=== PATIENT | female | born 1935 | race Caucasian/White ===

== ENCOUNTER → 2018-07-13 | Outpatient (REF) | payer MEDICARE, OTHER | LOC: M LAB REF 16:22 | DX: N39.41 Urge incontinence (principal); R35.0 Frequency of micturition | CPT/HCPCS: 87186 ==

== ENCOUNTER → 2018-08-11 | Outpatient (CLI) | payer MEDICARE, BC, OTHER | LOC: M RAD 14:20 | DX: Z12.31 Encounter for screening mammogram for malignant neoplasm of breast (principal); Z80.0 Family history of malignant neoplasm of digestive organs | CPT/HCPCS: 77067 ==

== ENCOUNTER → 2018-10-04 | Outpatient (REF) | payer MEDICARE, OTHER ==
[~2018-10-04] MED LIST: CALC1CAP31 PO; MULTCAP PO
[2018-10-04 19:11] LABS: APPEARANCE, URINE CLEAR (CLEAR); BACTERIA, URINE AUTO 2+ (NEGATIVE); BILIRUBIN, URINE AUTO NEGATIVE (NEGATIVE); BLOOD, URINE BLOOD NEGATIVE (NEGATIVE); COLOR, URINE YELLOW (YELLOW); GLUCOSE, URINE (UA) AUTO NEGATIVE (NEGATIVE); KETONE, URINE AUTO NEGATIVE (NEGATIVE); LEUKOCYTE ESTERASE, URINE AUTO NEGATIVE (NEGATIVE); MUCUS, URINE SMALL (NEGATIVE); NITRITE, URINE AUTO NEGATIVE (NEGATIVE); PROTEIN, URINE AUTO NEGATIVE (NEGATIVE); RBC, URINE AUTO 1 /HPF (0-3); SQUAMOUS EPITHELIAL CELL UR AU 5 /HPF (0-6); UROBILINOGEN, URINE AUTO 0.2 mg/dL (0.0-2.0); WBC, URINE AUTO 0 /HPF (0-3)
== END ==
LOC: M LAB REF 16:41
PROVIDERS: ATTEND Obstetrics & Gynecology
DX: N39.46 Mixed incontinence (principal); R35.1 Nocturia; N32.81 Overactive bladder

== ENCOUNTER 2018-10-18 09:11 | Day surgery (SDC) | payer MEDICARE, BC, OTHER ==
[~2018-10-18] VITALS: Ht 160 cm; Wt 78.0 kg
[~2018-10-18 09:11] MED LIST changes: +LIDOCAINE 2% INJ 100 MG/5 ML SDV (FOR ANES.) As Ordered ONE; +PROPOFOL 200 MG/20 ML VIAL As Ordered ONE
[2018-10-18] MEDS ORDERED: PROPOFOL 200 MG/20 ML VIAL As Ordered ONE (10:01)
[2018-10-18] MEDS ORDERED: NS 1,000 ML IV SCH (10:15)
--- NOTE | 2018-10-18 11:22 | ROOR ---
Patient Name: Melida Waterman Procedure Date: 10/18/2018 10:59 AM Date of : 1935 Age: 83 Room: [facility] Gender: Female Note Status: Finalized Procedure: Total Colonoscopy to Cecum Indications: Heme positive stool Providers: Valerio Hannon MD Referring MD: Krista Rosas NP Requesting Provider: Medicines: Monitored Anesthesia Care Complications: No immediate complications. Procedure: Pre-Anesthesia Assessment: - The heart rate, respiratory rate, oxygen saturations, blood pressure, adequacy of pulmonary ventilation, and response to care were monitored throughout the procedure. The Colonoscope was introduced through the anus and advanced to the cecum, identified by appendiceal orifice and ileocecal valve. The colonoscopy was performed without difficulty. The patient tolerated the procedure well. The quality of the bowel preparation was good. Findings: The perianal and digital rectal examinations were normal. Non-bleeding internal hemorrhoids were found during retroflexion. The hemorrhoids were small and Grade I (internal hemorrhoids that do not prolapse). Multiple small and large-mouthed diverticula were found in the recto-sigmoid colon, sigmoid colon and descending colon. The exam was otherwise without abnormality on direct and retroflexion views. Impression: - Non-bleeding internal hemorrhoids. - Diverticulosis in the recto-sigmoid colon, in the sigmoid colon and in the descending colon. - The examination was otherwise normal on direct and retroflexion views. - No specimens collected. - The exam was otherwise normal to the cecum. Recommendation: - Patient has a contact number available for emergencies. The signs and symptoms of potential delayed complications were discussed with the patient. Return to normal activities tomorrow. Written discharge instructions were provided to the patient. - High fiber diet. - Discharge patient to home. - Continue present medications. - Repeat colonoscopy for symptoms only. - Return to referring physician. - The findings and recommendations were discussed with the patient's family. Valerio Hannon MD Valerio Hannon MD 10/18/2018 11:22:11 AM This report has been signed electronically. Number of Addenda: 0 Note Initiated On: 10/18/2018 10:59 AM Estimated Blood Loss: Estimated blood loss: none.
[2018-10-18 11:40] VITALS: BP 156/73
== END 2018-10-18 11:50 | disposition home or self-care (01) ==
LOC: M OPP 09:11
PROVIDERS: ATTEND Internal Medicine Gastroenterology
DX: K64.0 First degree hemorrhoids (principal); R19.5 Other fecal abnormalities; K57.30 Diverticulosis of large intestine without perforation or abscess without bleeding; K21.9 Gastro-esophageal reflux disease without esophagitis; I10 Essential (primary) hypertension; Z88.2 Allergy status to sulfonamides; Z80.0 Family history of malignant neoplasm of digestive organs

== ENCOUNTER → 2018-10-27 | Outpatient (REF) | payer MEDICARE, BC, OTHER ==
[~2018-10-27] MED LIST changes: -LIDOCAINE 2% INJ 100 MG/5 ML SDV (FOR ANES.) As Ordered ONE; -PROPOFOL 200 MG/20 ML VIAL As Ordered ONE
[2018-10-27 12:52] LABS: PERCENT SATURATION 20.2 % (13.2-45.0)
== END ==
LOC: M LAB REF 12:02
PROVIDERS: ATTEND Nurse Practitioner Adult Health
DX: I12.9 Hypertensive chronic kidney disease with stage 1 through stage 4 chronic kidney disease, or unspecified chronic kidney disease (principal); N18.9 Chronic kidney disease, unspecified; D63.1 Anemia in chronic kidney disease

== ENCOUNTER → 2021-02-11 | Outpatient (CLI) | payer MEDICARE, BC, OTHER ==
--- NOTE | 2021-02-11 10:26 | REPMRS ---
Patient History The patient states she has not had a clinical breast exam in over a year. Family history of colorectal cancer at age 50 or over in mother. Took hormonal contraceptives for 7 years. No breast complaints today Patient signed the MRS sheet 1st covid vaccine 12/24/20-left arm-Moderna 2nd covid vaccine 01/21/21-right arm Priors on PACS Patient Identification Verified Digital Woman Screen Mammo: February 11, 2021 - Exam #: [id number] Bilateral CC and MLO view(s) were taken. Technologist: Amy Orlando, Technologist Prior study comparison: August 11, 2018, bilateral digital mammo screening bilat, performed at [facility], [place]. August 03, 2017, bilateral digital mammo screening bilat, performed at [facility], [place]. June 20, 2016, bilateral digital mammo screening bilat, performed at [facility], [place]. FINDINGS: There are scattered fibroglandular densities. The Volpara volumetric breast density category is:B. There has been no change in the appearance of the mammogram from the prior studies. There is a mild amount of scattered fibroglandular density which is fairly symmetric. There is no interval development of dominant mass, architectural distortion, or grouped microcalcification suggestive of malignancy. 3-D tomosynthesis shows no additional findings. Assessment: BI-RADS/ACR category 1 mammogram. Negative Mammogram. Recommendation Routine screening mammogram of both breasts in 1 year (for women over age 40). This patient's [facility] Lifetime Breast Cancer Risk is estimated at 0.3 %. This mammogram was interpreted with the aid of an FDA-approved computer-aided dectection system. Electronically Signed By: Reji George MD 02/11/21 [id number]
== END ==
LOC: M WHC 08:32
PROVIDERS: ATTEND Nurse Practitioner Adult Health
DX: Z12.31 Encounter for screening mammogram for malignant neoplasm of breast (principal)

== ENCOUNTER → 2021-03-20 | Outpatient (CLI) | payer MEDICARE, BC, OTHER ==
--- NOTE | 2021-03-20 13:08 | REP ---
INDICATION: LOW BACK PAIN. COMPARISON: 09/24/2005. TECHNIQUE: Five views lumbosacral spine. FINDINGS: There is no compression fracture. There is mild anterior grade 1 spondylolisthesis of L4 on L5 and L5 on S1 due to posterior facet arthropathy. Bridging osteophytes are seen the T11 through L2 levels. There is mild spurring of L3 through L5. There is mild disc space narrowing and subchondral sclerosis at L4-5 and L5-S1 disc spaces, with moderate spurring, sclerosis and narrowing at the posterior facet joints at these levels. The posterior elements are intact. There is mild curvature toward the left. IMPRESSION: No compression fracture. Degenerative changes as discussed above have progressed since the prior study. <Electronically signed by Ozzy Minaya > 03/20/21 [id number]
== END ==
LOC: M WUC 11:36
PROVIDERS: ATTEND Nurse Practitioner Adult Health
DX: M54.5 Low back pain (principal); M51.36 Other intervertebral disc degeneration, lumbar region; M25.78 Osteophyte, vertebrae; M46.06 Spinal enthesopathy, lumbar region

== ENCOUNTER 2021-12-25 21:05 | Observation (INO) | payer MEDICARE, BC, OTHER ==
[~2021-12-25] VITALS: Ht 154.9 cm; Wt 77.0 kg
[2021-12-25] MEDS ORDERED: ROSU5TAB5 (21:20)
[2021-12-25] MEDS ORDERED: XARE15TA (21:20)
[2021-12-25 22:00] VITALS: BP 174/82
[2021-12-25 22:01] LABS: BASO % 0.7 % (0.0-1.0); EOS # 0.2 10^3/uL (0.0-0.5); EOS % 3.6 % (0.0-3.0); HEMATOCRIT 40.5 % (36.0-47.0); HEMOGLOBIN 13.5 g/dl (12.0-15.5); LYMPH # 1.6 10^3/uL (1.5-5.0); LYMPH % 25.7 % (24.0-44.0); MEAN CORPUSCULAR HEMOGLOBIN 30.7 pg (27.0-33.0); MEAN CORPUSCULAR HGB CONC 33.3 g/dl (32.0-36.5); MONO # 0.7 10^3/uL (0.0-0.8); MONO % 11.6 % (2.0-8.0); NEUTROPHILS # 3.6 10^3/uL (1.5-8.5); NEUTROPHILS % 58.2 % (36.0-66.0); PLATELET COUNT, AUTOMATED 211 10^3/uL (150-450); WHITE BLOOD COUNT 6.1 10^3/uL (4.0-10.0)
[2021-12-25 22:12] LABS: INR 2.16; PROTHROMBIN TIME 24.5 SECONDS (12.7-14.5)
[2021-12-25 22:13] LABS: PARTIAL THROMBOPLASTIN TIME 51.1 SECONDS (25.9-37.0)
[2021-12-25 22:16] LABS: CK-MB VALUE MASS 1.1 NG/ML (<3.6); MB/CK RELATIVE INDEX 1.53 (< OR =4)
[2021-12-25 22:30] VITALS: BP 174/82
[2021-12-25 23:05] VITALS: BP 174/82
[2021-12-26] MEDS ORDERED: XARE15TA PO (00:18)
[2021-12-26] MEDS ORDERED: ROSU5TAB5 PO (00:18)
[2021-12-26] MEDS ORDERED: MAALOX 30 ML SUSP *UDC PO PRN (00:20)
[2021-12-26] MEDS ORDERED: HOME MED LIST COMPLETE! XX SCH (00:20)
[2021-12-26] MEDS ORDERED: ACETAMINOPHEN TAB 650MG DOSE (2X325MG) PO PRN (00:20)
[2021-12-26] MEDS ORDERED: MOM 30ML SUSPENSION UDC PO PRN (00:20)
[2021-12-26] MEDS ORDERED: PILL CUTTER 1 EACH XX PRN (00:30)
[2021-12-26 00:53] LABS: RSV AMPLIFICATION NEGATIVE (NEGATIVE)
[2021-12-26 01:30] VITALS: BP 174/82
[2021-12-26 08:09] LABS: HEMATOCRIT 36.5 % (36.0-47.0); HEMOGLOBIN 11.9 g/dl (12.0-15.5); MEAN CORPUSCULAR HEMOGLOBIN 30.1 pg (27.0-33.0); MEAN CORPUSCULAR HGB CONC 32.6 g/dl (32.0-36.5); MEAN CORPUSCULAR VOLUME 92.4 fl (80.0-96.0); PLATELET COUNT, AUTOMATED 174 10^3/uL (150-450); RED BLOOD COUNT 3.95 10^6/uL (4.00-5.40); WHITE BLOOD COUNT 5.6 10^3/uL (4.0-10.0)
[2021-12-26 08:33] LABS: HEMOGLOBIN A1c 5.9 %
[2021-12-26 08:36] LABS: CALCIUM LEVEL 9.3 MG/DL (8.8-10.2); CHOLESTEROL RISK RATIO 1.96 (<5); CREATININE FOR GFR 1.15 MG/DL (0.55-1.30); GLOMERULAR FILTRATION RATE 47.9 (>32); POTASSIUM SERUM 4.2 MEQ/L (3.5-5.1)
[2021-12-26] MEDS ORDERED: DOCUSATE SODIUM 100MG CAPSULE PO SCH (09:00)
[2021-12-26] MEDS ORDERED: METOPROLOL SUCC *XL* 12.5MG PER 1/2 TAB (TopROL *XL*) PO SCH (09:00)
[2021-12-26] MEDS ORDERED: ROSUVASTATIN 10 MG TAB (CRESTOR) PO SCH (09:00)
[2021-12-26 14:00] VITALS: BP 130/90
[2021-12-26] MEDS ORDERED: CEFD300C41 PO (16:37)
[2021-12-26 16:50] VITALS: BP 142/85
[2021-12-26] MEDS ORDERED: LASI20TA3 PO (16:53)
[2021-12-26] MEDS ORDERED: METO1TAB32 PO (16:53)
[2021-12-26] MEDS ORDERED: cefTRIAXone SOD 1 GM in D5W MINI-BAG PLUS 50 ML IV SCH ×4 (17:00)
[2021-12-26] MEDS ORDERED: RIVAROXABAN 15 MG TAB (XARELTO) PO SCH (18:00)
== END 2021-12-26 17:52 | disposition home or self-care (01) ==
LOC: M ED 21:05 → M ED INP 21:06 → ENRESERV 12-26 13:00 → M MSPAV 12-26 13:52
PROVIDERS: ADMIT Family Medicine; ATTEND Family Medicine
DX: R41.82 Altered mental status, unspecified (principal); I48.0 Paroxysmal atrial fibrillation; E78.5 Hyperlipidemia, unspecified; E78.00 Pure hypercholesterolemia, unspecified; N39.0 Urinary tract infection, site not specified; K21.9 Gastro-esophageal reflux disease without esophagitis; Z79.01 Long term (current) use of anticoagulants; Z79.899 Other long term (current) drug therapy; Z88.2 Allergy status to sulfonamides; M25.511 Pain in right shoulder; K44.9 Diaphragmatic hernia without obstruction or gangrene; Z86.73 Personal history of transient ischemic attack (TIA), and cerebral infarction without residual deficits; I10 Essential (primary) hypertension
CPT/HCPCS: 36415; 70450; 70544; 70551; 71045; 73030; 80047; 80048; 80061; 81001; 82550; 82553; 83036; 84484; 85025; 85027; 85610; 85730; 86850; 86900; 86901; 87088; 87186; 87631; 93005; 93041; 93306; 93880; 94760; 96365; 97161; 99285; G0378; J0696

== ENCOUNTER → 2022-07-24 | Outpatient (CLI) | payer MEDICARE, BC, OTHER ==
[~2022-07-24] MED LIST changes: +CEFD300C41 PO; +LASI20TA3 PO; +METO1TAB32 PO; +ROSU5TAB5; +ROSU5TAB5 PO; +XARE15TA; +XARE15TA PO
== END ==
LOC: M WHC 12:28
PROVIDERS: ATTEND Nurse Practitioner Adult Health
DX: Z12.31 Encounter for screening mammogram for malignant neoplasm of breast (principal)

== ENCOUNTER → 2022-08-14 | Outpatient (REF) | payer MEDICARE, BC, OTHER | LOC: M LAB REF 16:14 | PROVIDERS: ATTEND Nurse Practitioner Adult Health | DX: R41.3 Other amnesia (principal) ==

== ENCOUNTER → 2023-08-04 | Outpatient (CLI) | payer MEDICARE, BC, OTHER ==
[~2023-08-04] MED LIST changes: -CEFD300C41 PO; +CEFD300C42 PO
== END ==
LOC: M PLAIMG 10:44
PROVIDERS: ATTEND Physician Assistant Medical
DX: R41.3 Other amnesia (principal)

== ENCOUNTER → 2023-09-04 | Outpatient (CLI) | payer MEDICARE, BC, OTHER ==
[~2023-09-04] MED LIST changes: +CEFD1CAP9 PO; -CEFD300C42 PO
== END ==
LOC: M PLARAD 11:59
PROVIDERS: ATTEND Physician Assistant Medical
DX: R41.81 Age-related cognitive decline (principal)

== ENCOUNTER → 2025-04-03 | Outpatient (REF) | payer MEDICARE, BC, OTHER ==
[~2025-04-03] MED LIST changes: +ROSU5TAB49; +ROSU5TAB49 PO; -ROSU5TAB5; -ROSU5TAB5 PO
== END ==
LOC: M LAB REF 12:00
PROVIDERS: ATTEND Physician Assistant Medical
DX: N39.0 Urinary tract infection, site not specified (principal)

== ENCOUNTER → 2025-05-02 | Outpatient (CLI) | payer MEDICARE, BC, OTHER | LOC: M WUC 11:36 | PROVIDERS: ATTEND Internal Medicine | DX: R06.02 Shortness of breath (principal); I50.32 Chronic diastolic (congestive) heart failure ==

== ENCOUNTER → 2025-05-02 | Outpatient (REF) | payer MEDICARE, OTHER | LOC: M LAB REF 12:24 | PROVIDERS: ATTEND Internal Medicine | DX: I50.32 Chronic diastolic (congestive) heart failure (principal); R06.02 Shortness of breath ==

== ENCOUNTER → 2025-05-11 | Outpatient (REF) | payer MEDICARE, OTHER | LOC: M LAB REF 14:33 | PROVIDERS: ATTEND Internal Medicine | DX: I48.21 Permanent atrial fibrillation (principal); R06.02 Shortness of breath; I50.33 Acute on chronic diastolic (congestive) heart failure ==

== ENCOUNTER 2025-06-19 15:13 | Inpatient (IN) | payer MEDICARE, OTHER ==
[~2025-06-19] VITALS: Ht 157.5 cm; Wt 72.1 kg
[2025-06-19 16:15] LABS: BASO # 0.0 10^3/uL (0.0-0.2); BASO % 0.7 % (0.0-1.0); EOS # 0.1 10^3/uL (0.0-0.5); EOS % 1.8 % (0.0-3.0); LYMPH # 1.1 10^3/uL (1.5-5.0); LYMPH % 18.4 % (24.0-44.0); MONO # 0.6 10^3/uL (0.0-0.8); MONO % 9.8 % (2.0-8.0); NEUTROPHILS # 3.9 10^3/uL (1.5-8.5); NEUTROPHILS % 69.1 % (36.0-66.0); PLATELET COUNT, AUTOMATED 204 10^3/uL (150-450)
[2025-06-19 16:40] LABS: ALT/SGPT 48.0 U/L (7.0-40); AST/SGOT 61.0 U/L (<34); CALCIUM LEVEL 9.5 MG/DL (8.3-10.6); CARBON DIOXIDE LEVEL 27.0 MMOL/L (20-31); CHLORIDE LEVEL 101.0 MMOL/L (98-107); CK-MB VALUE MASS 2.1 NG/ML (<3.6); CREATININE FOR GFR 1.45 MG/DL (0.55-1.30); GLOMERULAR FILTRATION RATE 34.7 (>32); POTASSIUM SERUM 3.7 MMOL/L (3.5-5.1); SODIUM LEVEL 139.0 MMOL/L (136-145)
[2025-06-19 16:42] LABS: FREE T4 1.24 NG/DL (0.89-1.76)
[2025-06-19 16:43] LABS: CPK CREATINE PHOSPHOKINASE 69.0 U/L (34-145); MB/CK RELATIVE INDEX 3.04 (< OR =4)
[2025-06-19 17:35] LABS: CK-MB VALUE MASS 1.8 NG/ML (<3.6)
[2025-06-19 17:36] LABS: CPK CREATINE PHOSPHOKINASE 59.0 U/L (34-145); MB/CK RELATIVE INDEX 3.05 (< OR =4)
[2025-06-19] MEDS: ONDANSETRON 4MG 2ML VIAL IV ONE (21:52)
[2025-06-19] MEDS: FUROSEMIDE 40 MG/4 ML VIAL IV ONE (21:52)
[2025-06-19 22:29] VITALS: O2SAT 94
[2025-06-19] MEDS ORDERED: ISOVUE-370 76% 100 ML VIAL As Ordered ONE (22:42)
[2025-06-20] VITALS (7 sets, daily range): BP systolic 107–142; BP diastolic 57–86; TEMP 97.2–97.6; O2SAT 94–96
[2025-06-20] MEDS: PIPERACILLIN/TAZOBACTAM SOD 3.375 GM in DEXTROSE 5% (D5W) ADV/MINI-BAG 50 ML IV SCH ×2 (05:58→13:32)
[2025-06-20] MEDS: ONDANSETRON 4MG 2ML VIAL IV PRN (05:58)
[2025-06-20 06:13] LABS: PLATELET COUNT, AUTOMATED 197 10^3/uL (150-450)
[2025-06-20 06:17] LABS: APPEARANCE, URINE CLOUDY (CLEAR); BACTERIA, URINE AUTO 1+ (NEGATIVE); BILIRUBIN, URINE AUTO NEGATIVE (NEGATIVE); BLOOD, URINE BLOOD 2+ (NEGATIVE); GLUCOSE, URINE (UA) AUTO NEGATIVE (NEGATIVE); KETONE, URINE AUTO NEGATIVE (NEGATIVE); LEUKOCYTE ESTERASE, URINE AUTO 2+ (NEGATIVE); MUCUS, URINE SMALL (NEGATIVE); NITRITE, URINE AUTO NEGATIVE (NEGATIVE); PROTEIN, URINE AUTO NEGATIVE (NEGATIVE); RBC, URINE AUTO 10 /HPF (0-3); SPECIFIC GRAVITY URINE AUTO 1.023 (1.002-1.035); SQUAMOUS EPITHELIAL CELL UR AU 0 /HPF (0-6); UROBILINOGEN, URINE AUTO 0.2 mg/dL (0.0-2.0); WBC, URINE AUTO 4 /HPF (0-3)
[2025-06-20 06:39] LABS: ALT/SGPT 44.0 U/L (7.0-40); AST/SGOT 50.0 U/L (<34); CALCIUM LEVEL 9.3 MG/DL (8.3-10.6); CARBON DIOXIDE LEVEL 30.0 MMOL/L (20-31); CHLORIDE LEVEL 99.0 MMOL/L (98-107); CREATININE FOR GFR 1.36 MG/DL (0.55-1.30); GLOMERULAR FILTRATION RATE 37.5 (>32); POTASSIUM SERUM 3.3 MMOL/L (3.5-5.1); SODIUM LEVEL 140.0 MMOL/L (136-145)
[2025-06-20 07:20] LABS: MAGNESIUM LEVEL 1.8 MG/DL (1.8-2.4)
[2025-06-20 07:21] LABS: C REACTIVE PROTEIN QUANTITATIV 3.43 MG/DL (<1.0)
[2025-06-20] MEDS ORDERED: FURO40TA2 PO (08:07)
[2025-06-20] MEDS ORDERED: METO1TAB32 PO (08:07)
[2025-06-20] MEDS ORDERED: SERT-141 PO (08:07)
[2025-06-20] MEDS ORDERED: SPIR-10 PO (08:07)
[2025-06-20] MEDS ORDERED: HOME MED LIST COMPLETE! XX SCH (08:10)
[2025-06-20] MEDS: KCL 10MEQ IN D5/0.45NS 1000ML 1,000 ML IV SCH (10:00)
[2025-06-20] MEDS: METOPROLOL SUCC. 25 MG *XL* TAB PO SCH (10:04)
[2025-06-20] MEDS: ROSUVASTATIN 10 MG TAB PO SCH (10:05)
[2025-06-20 14:48] LABS: INR 1.68
[2025-06-21 04:20] VITALS: BP 145/90; TEMP 97.4; O2SAT 94
[2025-06-21 07:56] LABS: PLATELET COUNT, AUTOMATED 188 10^3/uL (150-450)
[2025-06-21 08:00] VITALS: BP 135/75; TEMP 97.8; O2SAT 92
[2025-06-21 08:00] LABS: BASO # 0.1 10^3/uL (0.0-0.2); BASO % 0.2 % (0.0-1.0); EOS # 0.0 10^3/uL (0.0-0.5); EOS % 0.0 % (0.0-3.0); LYMPH # 0.4 10^3/uL (1.5-5.0); LYMPH % 1.5 % (24.0-44.0); MONO # 1.5 10^3/uL (0.0-0.8); MONO % 6.5 % (2.0-8.0); NEUTROPHILS # 20.8 10^3/uL (1.5-8.5); NEUTROPHILS % 88.0 % (36.0-66.0); PLATELET COUNT, AUTOMATED 183 10^3/uL (150-450)
[2025-06-21 08:27] LABS: ALT/SGPT 35.0 U/L (7.0-40); AST/SGOT 32.0 U/L (<34); CALCIUM LEVEL 8.7 MG/DL (8.3-10.6); CARBON DIOXIDE LEVEL 25.0 MMOL/L (20-31); CHLORIDE LEVEL 94.0 MMOL/L (98-107); CREATININE FOR GFR 1.49 MG/DL (0.55-1.30); GLOMERULAR FILTRATION RATE 33.6 (>32); POTASSIUM SERUM 3.0 MMOL/L (3.5-5.1); SODIUM LEVEL 131.0 MMOL/L (136-145)
[2025-06-21 08:34] LABS: CALCIUM LEVEL 9.2 MG/DL (8.3-10.6); CARBON DIOXIDE LEVEL 27.0 MMOL/L (20-31); CHLORIDE LEVEL 95.0 MMOL/L (98-107); CREATININE FOR GFR 1.5 MG/DL (0.55-1.30); GLOMERULAR FILTRATION RATE 33.3 (>32); MAGNESIUM LEVEL 1.8 MG/DL (1.8-2.4); POTASSIUM SERUM 2.9 MMOL/L (3.5-5.1); SODIUM LEVEL 134.0 MMOL/L (136-145)
[2025-06-21] MEDS ORDERED: MORPHINE 4 MG/ML 1 ML VIAL IV PRN ×2 (08:40→08:45)
[2025-06-21] MEDS: POTASSIUM CHLORIDE 10MEQ SR TABLET PO ONE (08:55)
[2025-06-21] MEDS: FLUZONE HIGH DOSE (65+) 0.5 ML SYRINGE (25-26) IM.IMMUN ONE (09:58)
[2025-06-21] MEDS: KCL 40MEQ in NS 1000ML 1,000 ML IV SCH (10:15)
[2025-06-21 12:00] VITALS: BP 144/83; TEMP 98.4; O2SAT 94
[2025-06-21] MEDS ORDERED: MIDAZOLAM INJ 2 MG/2 ML VIAL IV PRN (14:30)
[2025-06-21] MEDS: SODIUM CHLORIDE 0.9% 1000 ML XX SCH (14:30)
[2025-06-21] MEDS ORDERED: CIPROFLOXACIN 400 MG in IV 1 EA IV ONE (14:30)
[2025-06-21] MEDS: NS (Normal Saline) 0.9% 1,000 ML IV SCH (14:30)
[2025-06-21] MEDS: LIDOCAINE 1% MDV 20 ML VIAL SC SCH (15:13)
[2025-06-21] MEDS: PIPERACILLIN/TAZOBACTAM SOD 3.375 GM in DEXTROSE 5% (D5W) ADV/MINI-BAG 50 ML IV ONE (15:15)
[2025-06-21 16:00] VITALS: BP 130/74; TEMP 98.3; O2SAT 97
[2025-06-21 18:53] LABS: CALCIUM LEVEL 9.0 MG/DL (8.3-10.6); CARBON DIOXIDE LEVEL 27.0 MMOL/L (20-31); CHLORIDE LEVEL 98.0 MMOL/L (98-107); CREATININE FOR GFR 1.57 MG/DL (0.55-1.30); GLOMERULAR FILTRATION RATE 31.5 (>32); POTASSIUM SERUM 4.2 MMOL/L (3.5-5.1); SODIUM LEVEL 135.0 MMOL/L (136-145)
[2025-06-21 20:00] VITALS: BP 117/66; TEMP 98.9; O2SAT 94
[2025-06-21] MEDS: PIPERACILLIN/TAZOBACTAM SOD 3.375 GM in DEXTROSE 5% (D5W) ADV/MINI-BAG 50 ML IV SCH (21:49)
[2025-06-21] MEDS ORDERED: NS (Normal Saline) 0.9% 1,000 ML IV SCH (23:30)
[2025-06-22] VITALS: BP 115/62; TEMP 99.2; O2SAT 93
[2025-06-22 04:00] VITALS: BP 138/81; TEMP 98.5; O2SAT 96
[2025-06-22 07:13] LABS: PLATELET COUNT, AUTOMATED 170 10^3/uL (150-450)
[2025-06-22 07:51] LABS: ALT/SGPT 26.0 U/L (7.0-40); CALCIUM LEVEL 8.7 MG/DL (8.3-10.6); CARBON DIOXIDE LEVEL 25.0 MMOL/L (20-31); CHLORIDE LEVEL 101.0 MMOL/L (98-107); CREATININE FOR GFR 1.69 MG/DL (0.55-1.30); GLOMERULAR FILTRATION RATE 28.9 (>32); POTASSIUM SERUM 4.0 MMOL/L (3.5-5.1); SODIUM LEVEL 136.0 MMOL/L (136-145)
[2025-06-22 08:00] VITALS: BP 141/71; TEMP 97; O2SAT 94
[2025-06-22 12:00] VITALS: BP 135/70; TEMP 97.5; O2SAT 95
[2025-06-22 16:00] VITALS: BP 154/76; TEMP 98.1; O2SAT 94
[2025-06-22 20:00] VITALS: BP 141/82; TEMP 98.3; O2SAT 93
[2025-06-23] VITALS (7 sets, daily range): BP systolic 124–150; BP diastolic 61–89; TEMP 98–98.5; O2SAT 93–98
[2025-06-23 06:25] LABS: AST/SGOT 26.0 U/L (<34)
[2025-06-23 08:33] LABS: PLATELET COUNT, AUTOMATED 159 10^3/uL (150-450)
[2025-06-23 08:48] LABS: ALT/SGPT 21.0 U/L (7.0-40); AST/SGOT 29.0 U/L (<34); CALCIUM LEVEL 8.2 MG/DL (8.3-10.6); CARBON DIOXIDE LEVEL 19.0 MMOL/L (20-31); CHLORIDE LEVEL 107.0 MMOL/L (98-107); CREATININE FOR GFR 1.55 MG/DL (0.55-1.30); GLOMERULAR FILTRATION RATE 32.0 (>32); POTASSIUM SERUM 4.9 MMOL/L (3.5-5.1); SODIUM LEVEL 136.0 MMOL/L (136-145)
[2025-06-23] MEDS: SODIUM CHLORIDE 0.9% INJ 10 ML SYR XX SCH (12:42)
[2025-06-23] MEDS: RIVAROXABAN 15MG TAB PO SCH (18:12)
[2025-06-24 04:11] VITALS: BP 131/68; TEMP 98.4; O2SAT 98
[2025-06-24 08:00] VITALS: BP 150/79; TEMP 97.9; O2SAT 100
[2025-06-24 08:36] LABS: PLATELET COUNT, AUTOMATED 182 10^3/uL (150-450)
[2025-06-24 09:05] LABS: ALT/SGPT 21.0 U/L (7.0-40); AST/SGOT 21.0 U/L (<34); CALCIUM LEVEL 8.6 MG/DL (8.3-10.6); CARBON DIOXIDE LEVEL 25.0 MMOL/L (20-31); CHLORIDE LEVEL 103.0 MMOL/L (98-107); CREATININE FOR GFR 1.5 MG/DL (0.55-1.30); GLOMERULAR FILTRATION RATE 33.3 (>32); POTASSIUM SERUM 4.5 MMOL/L (3.5-5.1); SODIUM LEVEL 137.0 MMOL/L (136-145)
[2025-06-24 11:12] LABS: C REACTIVE PROTEIN QUANTITATIV 9.59 MG/DL (<1.0)
[2025-06-24 12:00] VITALS: BP 146/70; TEMP 97.5; O2SAT 100
[2025-06-24 16:00] VITALS: BP 118/82; TEMP 97.3; O2SAT 97
[2025-06-24 19:39] VITALS: BP 133/73; TEMP 98; O2SAT 99
[2025-06-24 23:50] VITALS: BP 148/74; TEMP 97.3; O2SAT 99
[2025-06-25 03:45] VITALS: BP 113/75; TEMP 97; O2SAT 99
[2025-06-25 08:00] VITALS: BP 131/95; TEMP 98.4; O2SAT 100
[2025-06-25 08:35] VITALS: BP 131/95
[2025-06-25 09:33] LABS: PLATELET COUNT, AUTOMATED 202 10^3/uL (150-450)
[2025-06-25 10:03] LABS: ALT/SGPT 20.0 U/L (7.0-40); AST/SGOT 19.0 U/L (<34); CALCIUM LEVEL 8.9 MG/DL (8.3-10.6); CARBON DIOXIDE LEVEL 25.0 MMOL/L (20-31); CHLORIDE LEVEL 103.0 MMOL/L (98-107); CREATININE FOR GFR 1.26 MG/DL (0.55-1.30); GLOMERULAR FILTRATION RATE 41.1 (>32); POTASSIUM SERUM 4.2 MMOL/L (3.5-5.1); SODIUM LEVEL 135.0 MMOL/L (136-145)
[2025-06-25] MEDS ORDERED: METR-265 PO (10:35)
[2025-06-25] MEDS ORDERED: CEFD300CAP PO (10:35)
== END 2025-06-25 11:33 | disposition home or self-care (01) | DRG 445 ==
LOC: M ED 15:13 → M ED INP 15:14 → OBSVTOIN 06-20 08:44 → M MS4PR 06-20 22:55
PROVIDERS: ADMIT Student in an Organized Health Care Education/Training Program; ATTEND Internal Medicine
PROC: BF42ZZZ Ultrasonography of Gallbladder (ICD-10-PCS; 2025-06-21)
PROC: 0F943ZZ Drainage of Gallbladder, Percutaneous Approach (ICD-10-PCS; principal; 2025-06-21 14:00)
DX: K81.0 Acute cholecystitis (principal); I13.0 Hypertensive heart and chronic kidney disease with heart failure and stage 1 through stage 4 chronic kidney disease, or unspecified chronic kidney disease; I50.30 Unspecified diastolic (congestive) heart failure; N17.9 Acute kidney failure, unspecified; E87.20 Acidosis, unspecified; N18.9 Chronic kidney disease, unspecified; E78.5 Hyperlipidemia, unspecified; I48.91 Unspecified atrial fibrillation; F03.90 Unspecified dementia, unspecified severity, without behavioral disturbance, psychotic disturbance, mood disturbance, and anxiety; K57.90 Diverticulosis of intestine, part unspecified, without perforation or abscess without bleeding; I08.3 Combined rheumatic disorders of mitral, aortic and tricuspid valves; K44.9 Diaphragmatic hernia without obstruction or gangrene; K64.8 Other hemorrhoids; Z96.659 Presence of unspecified artificial knee joint; Z79.899 Other long term (current) drug therapy

== ENCOUNTER → 2025-08-08 | Outpatient (CLI) | payer MEDICARE, BC, OTHER ==
[~2025-08-08] MED LIST changes: +CEFD300CAP PO; +FURO40TA2 PO; +LIDOCAINE 1% MDV 20 ML VIAL SC SCH; +METR-265 PO; +SERT-141 PO; +SPIR-10 PO
[2025-08-08] MEDS: SODIUM CHLORIDE 0.9% 1000 ML XX SCH (08:45)
[2025-08-08 09:07] VITALS: BP 137/75; TEMP 97.8; O2SAT 96
[2025-08-08] MEDS: ISOVUE-300 61% 100 ML VIAL IV SCH (09:23)
== END ==
LOC: M IRPRO 08:52
PROVIDERS: ATTEND Surgery
DX: K81.9 Cholecystitis, unspecified (principal)
CPT/HCPCS: 49424; 76080; Q9967

== ENCOUNTER 2025-09-04 17:10 | Emergency (ER) | payer MEDICARE, BC, OTHER ==
[~2025-09-04] VITALS: Ht 154.9 cm; Wt 72.6 kg
[~2025-09-04 17:10] MED LIST changes: -LIDOCAINE 1% MDV 20 ML VIAL SC SCH
[2025-09-04 18:54] VITALS: BP 130/76; TEMP 97.8; O2SAT 91
== END 2025-09-04 19:05 | disposition home or self-care (01) ==
LOC: M ED 17:10
DX: S00.83XA Contusion of other part of head, initial encounter (principal); W19.XXXA Unspecified fall, initial encounter; Y92.009 Unspecified place in unspecified non-institutional (private) residence as the place of occurrence of the external cause; Y93.9 Activity, unspecified; Y99.9 Unspecified external cause status; M43.12 Spondylolisthesis, cervical region; M47.812 Spondylosis without myelopathy or radiculopathy, cervical region; I11.9 Hypertensive heart disease without heart failure; Z79.01 Long term (current) use of anticoagulants; Z79.899 Other long term (current) drug therapy; Z88.2 Allergy status to sulfonamides